=== PATIENT | female | born 1990 | race Caucasian/White ===

== ENCOUNTER → 2025-03-08 11:05 | Outpatient (REF) | payer MEDICARE, OTHER, SELFPAY | LOC: RAD 11:05 | PROVIDERS: ATTENDING PHYSICIAN Specialist; FAMILY PHYSICIAN Internal Medicine | DX: R10.13 Epigastric pain (principal) | CPT/HCPCS: 74246 ==

== ENCOUNTER → 2025-03-14 07:50 | Outpatient (REF) | payer MEDICARE, OTHER, SELFPAY | LOC: RAD 07:50 | PROVIDERS: ATTENDING PHYSICIAN Specialist; FAMILY PHYSICIAN Internal Medicine | DX: R10.13 Epigastric pain (principal) | CPT/HCPCS: 78264; A9541 ==

== ENCOUNTER → 2025-04-16 10:33 | Outpatient (REF) | payer MEDICARE, OTHER, SELFPAY | LOC: RAD 10:33 | PROVIDERS: ATTENDING PHYSICIAN Specialist; FAMILY PHYSICIAN Internal Medicine | DX: K31.84 Gastroparesis (principal) | CPT/HCPCS: 74250 ==